=== PATIENT | male | born 1995 | race Two or more races ===

== ENCOUNTER 2025-07-23 21:09 | Emergency (ER) | payer OTHER, SELFPAY ==
[2025-07-23 21:17] VITALS: BP 158/93; PULSE 75; TEMP 36.8; O2SAT 98; BMI 37.7
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
--- OUTSIDE RECORDS SUMMARY | 2025-07-23 21:46 | XMS_ITS | Clinical Summary ---
Author Organization [address] [address] Care Team Providers Care Lens Coater Name Role Phone None, Physician Primary Care Provider Unavailabl e Encounters DateTypeDepartmentCare DpmuEzvsamzujnb21/04/2025 11:00 AM ESTLab Visit [address] [address] Naz Gavin Encounter for drug screening (Primary Dx)from Last 3 Months Social History Tobacco UseTypesPacks/DayYears UsedDateSmoking Tobacco: Never AssessedSex and Gender InformationValueDate RecordedSex Assigned at BirthNot on fileLegal Sex Male11/23/2024 1:05 PM EDTGender IdentityNot on fileSexual OrientationNot on file Plan of Treatment Health MaintenanceDue DateLast DoneCommentsHPV Vaccine (2 - Male 3-dose series) Hepatitis B (HepB) Vaccine (1 of 3 - 19+ 3-dose series) 2014Tdap/Td Vaccine >11 yo (2 - Td or Tdap)nnual SDOH Nnxmoiioh24/01/2025Influenza Vaccine (#1)2025Meningococcal ACWYAged Out 03/07/2007No longer eligible based on patient's age to complete this topic Hepatitis A (HepA) QkhtkgrVewjjgtnu24/13/2009, 03/07/2007Haemophilus Influenzae Type B (Hib) VaccineAged OutNo longer eligible based on patient's age to complete this topicPneumococcal Vaccines 6-49 yo RiskAged OutNo longer eligible based on patient's age to complete this topicPolio (IPV)Aged OutNo longer eligible based on patient's age to complete this topicRotavirus (RV) VaccineAged OutNo longer eligible based on patient's age to complete this topic Care Teams Team MemberRelationshipSpecialtyStart DateEnd Date None, Physician PCP - General11/23/24
== END 2025-07-23 23:10 | disposition home or self-care (01) ==
PROVIDERS: Emergency Provider Internal Medicine
DX: M54.2 Cervicalgia (principal); R51.9 Headache, unspecified
CPT/HCPCS: 70450; 72125; 76376; 99284